=== PATIENT | female | born 1955 | race Caucasian/White ===

== ENCOUNTER → 2023-10-11 07:24 | Outpatient (REF) | payer BC, SELFPAY | LOC: HWWDC 07:24 | PROVIDERS: ATTENDING PHYSICIAN Physician Assistant Medical | DX: Z12.31 Encounter for screening mammogram for malignant neoplasm of breast (principal) | CPT/HCPCS: 77063; 77067 ==

== ENCOUNTER 2025-01-20 20:06 | Emergency (ER) | payer BC, SELFPAY ==
[2025-01-20 20:06] VITALS: BMI 27.0
[2025-01-20 20:07] VITALS: BP 189/115
--- NOTE | 2025-01-20 20:56 | ED.GENMED ---
History of Present Illness
General
Chief Complaint: Allergic Reaction
Source: patient and family
Time Seen by Provider: 01/20/25 20:41
History of Present Illness
History of Present Illness:
Note:
CHIEF COMPLAINT(S)
insect sting.
HISTORY OF PRESENT ILLNESS
The patient is a 69-year-old female presenting with pain in her right ankle, suspected to be caused by an insect sting. The sensation began around 7:00 PM. The patient denies experiencing chest pain, shortness of breath, dizziness, or throat
closing, although she reports feeling dry. No signs of significant allergic reaction were noted at the time of presentation.
PHYSICAL EXAM
- Airway is patent with no indication of obstruction.
- Examination of the oral cavity was conducted; findings were normal.
- Surface examination revealed no acute findings suggesting significant allergic response.
Nursing notes reviewed and vital signs reviewed.
PLAN
- Administration of oral Decadron (dexamethasone) or intravenous Decadron to manage inflammation and prevent an allergic reaction.
- Administration of famotidine (Pepcid) as a histamine H2-receptor antagonist to complement H1 blockade.
- The patient will be observed for an hour to monitor for any allergic reactions, especially concerning the medications administered.
- An EpiPen will be provided before discharge as a precautionary measure in case of future severe allergic reactions.
- The patient was advised that the effects of Decadron may take three to four hours to fully manifest.
- If symptoms of itching or discomfort persist post-discharge, hydroxazine (Atarax) may be used to manage symptoms.
DIFFERENTIAL DIAGNOSIS
The Differential Diagnosis includes, in no particular order and is not limited to:
1. Insect sting or bite
2. Allergic reaction
CARE-UPDATE
01/20/25 - 22:09
The patient was administered 25 mg of Benadryl via IV to observe its effect under medical supervision. It was determined that earlier reactions could potentially be attributed to the combination of medications rather than a specific allergy, as the
patient tolerated Anirac well. An EpiPen will be provided at discharge for emergency use, particularly for symptoms like difficulty breathing or throat swelling. Instructions were given for using the EpiPen and follow-up medications (e.g., steroids
or additional antihistamines) will be prescribed. Improvement is expected by the next day with Benadryls effects. The patient was advised on recognizing and managing potential future allergic reactions.
Disposition:
SUMMARY OF ENCOUNTER
The patient, a 69-year-old female, presented to the emergency department with suspected pain in her right ankle caused by an insect sting. She reported no significant signs of an allergic reaction. In the emergency department, she was administered
diphenhydramine (Benadryl) and dexamethasone (Decadron) to manage inflammation and potential allergic response. The treatment led to her feeling significantly better.
DISPOSITION
The patient will be discharged home with instructions and an EpiPen prescription.
ASSESSMENT
B sting.
EMERGENCY TREATMENTS ADMINISTERED
Diphenhydramine (Benadryl) and dexamethasone (Decadron) were administered to manage the inflammatory response and prevent an allergic reaction.
PLAN
The patient will be observed for an hour to monitor for any allergic reactions related to the administered medications. She will be provided an EpiPen prior to discharge as a precaution for future severe allergic reactions.
PATIENT EDUCATION AND COUNSELING
The patient was educated on recognizing and managing potential future allergic reactions. Specific instructions were given on how to use an EpiPen in case of emergency situations, such as difficulty breathing or throat swelling.
FOLLOW-UP INSTRUCTIONS
The patient is advised to follow up with her primary care physician for ongoing management and to schedule any necessary follow-up visits.
MEDICATION RECONCILIATION
An EpiPen prescription will be provided for emergency use. Diphenhydramine (Benadryl) and dexamethasone (Decadron) were administered in the emergency department.
MEDICAL DECISION MAKING
-Complexity of Data Reviewed: DDx list includes insect sting or bite, and allergic reaction.
-Data: My independent review of the management included observing the patients response to diphenhydramine and dexamethasone, which showed significant improvement.
-Risk: Consideration of Admission/Observation: Escalation of care including admission/observation was considered, given the complexity and risk of the patients presenting complaint. However, ultimately the patient was deemed safe for outpatient
management with close follow-up. Reasoning: Work-up was reassuring, patient�s symptoms were well controlled upon reevaluation, vitals were stable, and the patient was agreeable with discharge and reliable for follow-up.
DIAGNOSIS
T63.441A Toxic effect of venom of bees, accidental (unintentional), initial encounter.
Phy Exam
General Physical Exam
General Presentation: well appearing and mild distress
General age: appears stated age
General Skin: warm
General Habitus: normal
Cardiovascular Exam
Cardiovascular Exam: regular rate/rhythm, no edema and no murmur
Pulmonary Exam
Pulmonary Exam: lungs clear and no respiratory distress
Neurological Exam
Neurological Exam: alert and oriented x3
Musculoskeletal Exam
Musculoskeletal Exam: full ROM, no edema and neuro vasc intact
Skin Exam
Skin Exam: redness (No stinger present)
Course
Orders/Labs/Results
Orders:
Orders
01/20/25 20:54
Cardiac Monitoring- Treatment ONCE
0.9% Sodium Chloride 1000 ml [Nss] 1,000 ml IV BOLUS
Dexamethasone Sod Phosphate [Decadron] 10 mg IV NOW STA
Famotidine [Pepcid] 20 mg IV NOW STA
HydrOXYZINE [Atarax] 25 mg PO NOW STA
01/20/25 22:09
Diphenhydramine [Benadryl] 25 mg IV NOW STA
Vital Signs
Initial and Last Documented VS:
Initial Vital Signs
Temp Pulse Resp BP Pulse Ox
97.4 F 106 20 189/115 99
01/20/25 20:07 01/20/25 20:07 01/20/25 20:07 01/20/25 20:07 01/20/25 20:07
Last Documented Vital Signs
Temp Pulse Resp BP Pulse Ox
97.4 F 75 15 151/80 96
01/20/25 20:07 01/20/25 22:45 01/20/25 22:45 01/20/25 22:00 01/20/25 22:45
*Pulse Oximetry
SaO2: 98
Oxygen Mode of Delivery: Room air
Patient hypoxic: no
*Critical Care Note
Total Time (30-74mins, 75-104mins- exclusive of procedures): Not Applicable
Update Note
Update Note:
Patient is feeling better. She is starting to itch more. She is willing to try Benadryl
ED Attending Note
-
Portions of this chart may have been created with voice recognition software.� Occasional wrong word or��sound alike� substitutions may have occurred due to the inherent limitations of voice recognition software.
Discharge Plan
Departure
Patient Disposition: Home (Routine Discharge)
Date of Disposition: 01/20/25
Time of Disposition: 23:39
Patient with high blood pressure during this ER visit?: Yes
Discharge Problem:
Accidental insect sting
Instructions: Insect bites and stings - ED discharge instructions, BLOOD PRESSURE
Prescriptions:
New
diphenhydramine HCl [Benadryl] 25 mg capsule
25 mg PO TID PRN (Reason: allergy symptoms) Qty: 14 0RF
epinephrine [EpiPen] 0.3 mg/0.3 mL Auto-Injector
0.3 mg IM .STAT PRN (Reason: anaphylaxis) Qty: 1 0RF
famotidine [Pepcid] 20 mg tablet
20 mg PO DAILY Qty: 14 0RF
Referrals:
Brendon Culp MD [Family Provider, Family Practice]
Activity Restrictions/Additional Instructions:
Thank You for choosing [facility].
It was a pleasure meeting you and taking part in your care. We hope for your continued healing and wellness.
Please read discharge instructions in their entirety. However, they are for general education and may not describe your exact diagnosis at discharge. Information on your ER visit and medical conditions were discussed with you along with appropriate
follow up information...
If indicated, please take your medications as instructed and indicated on discharge paperwork.
Please schedule a follow up appointment as directed. Call to schedule an appointment
Please return to the emergency department with ANY change in, persisting, or worsening of symptoms. If any of your symptoms do not improve, or persist, or become more severe within 6-12 hours, please return to the emergency department for further
care.
Please return to the emergency department if you develop a headache, neck pain/stiffness, fever greater than 100.4F, chest pain, shortness of breath, persistent nausea, vomiting, slurred speech, difficulty walking, numbness/tingling, weakness, signs
of infection or any other symptoms that are worrisome to you.
If you have any questions or concerns please do not hesitate to call the Hospital at or E-mail me directly at [email or web address]
Interventions
Interventions:
ED- Cardiac Assessment Last Done: 01/20/25 20:26
ED- Pulmonary Assessment Last Done: 01/20/25 20:26
ED-Skin Assessment Last Done: 01/20/25 20:26
Discharge Date and Time
Print Language: CHINESE
[2025-01-20] MEDS: DECADRON 10 MG IV (21:00)
[2025-01-20] MEDS: PEPCID 20 MG IV (21:01)
[2025-01-20] MEDS: ATARAX 25 MG PO (21:01)
[2025-01-20] MEDS: NSS 1000 IV (21:03)
[2025-01-20 21:49] VITALS: BP 165/89
[2025-01-20 22:00] VITALS: BP 151/80
[2025-01-20] MEDS: BENADRYL 25 MG IV (22:29)
[2025-01-20 23:00] VITALS: BP 156/76
== END 2025-01-21 00:06 | disposition home or self-care (01) ==
LOC: EMR 20:06
PROVIDERS: EMERGENCY PHYSICIAN Student in an Organized Health Care Education/Training Program; FAMILY PHYSICIAN Family Medicine
DX: S90.561A Insect bite (nonvenomous), right ankle, initial encounter (principal); W57.XXXA Bitten or stung by nonvenomous insect and other nonvenomous arthropods, initial encounter
CPT/HCPCS: 99284; 96374; 96375; 96361